=== PATIENT | female | born 1955 ===

== ENCOUNTER 2017-02-10 08:05 | Day surgery (SDC) | payer SELFPAY ==
[2017-02-10 09:04] VITALS: BMI 28.3
[2017-02-10] MEDS ORDERED: Propofol 10 mg/ml Inj (20 ML) ONE ×2 (10:21→10:22)
[2017-02-10] MEDS ORDERED: Lactated Ringer's 500 ML IV SCH (10:45)
[2017-02-10 12:16] VITALS: TEMP 97.1
[2017-02-10 12:23] VITALS: O2SAT 99
[2017-02-10 12:26] VITALS: PULSE 70
[2017-02-10 12:49] VITALS: BP 144/61; RESP 20
== END 2017-02-10 12:05 | disposition home or self-care (01) ==
LOC: C.ENDO 08:05
PROVIDERS: ATTEND Internal Medicine Gastroenterology
DX: K57.30 Diverticulosis of large intestine without perforation or abscess without bleeding (principal); K64.8 Other hemorrhoids; D12.2 Benign neoplasm of ascending colon
CPT/HCPCS: 45388; 88305; 88342; J2704; J3010; J7120